=== PATIENT | male | born 1985 | race Hispanic/Latino ===

== ENCOUNTER → 2023-07-14 | Emergency (ER) | payer OTHER ==
[~2023-07-14] MED LIST: Ibuprofen 800 MG TAB ONE; Lidocaine 1% (PF) 30 ML VIAL ONE; Sulfameth/Trimethoprim DS 800-160mg TAB ONE
== END ==
LOC: NAV ERS 21:37
DX: L02.214 Cutaneous abscess of groin (principal)
CPT/HCPCS: 10060; 87070; 87205; J2001

== ENCOUNTER 2023-07-16 18:41 | Emergency (ER) | payer OTHER ==
[2023-07-16] MEDS ORDERED: Ibuprofen 800 MG TAB ONE ×2 (19:44→19:50)
== END 2023-07-16 20:01 | disposition home or self-care (01) ==
LOC: NAV ERS 18:41
DX: Z48.817 Encounter for surgical aftercare following surgery on the skin and subcutaneous tissue (principal); L02.214 Cutaneous abscess of groin
CPT/HCPCS: 99282